=== PATIENT | male | born 2000 | race Caucasian/White ===

== ENCOUNTER 2020-03-07 11:06 | Emergency (ER) | payer OTHER ==
[~2020-03-07] VITALS: Ht 157.5 cm; Wt 80.9 kg
--- NOTE | 2020-03-07 11:58 | REPVR ---
PROCEDURE INFORMATION: Exam: XR Chest, 2 Views Exam date and time: 03/07/2020 11:29 AM Age: 19 years old Clinical indication: Other: Sore throat; Additional info: Pleuritic cp TECHNIQUE: Imaging protocol: XR of the chest Views: 2 views. COMPARISON: No relevant prior studies available. FINDINGS: Lungs: Unremarkable. No consolidation. Pleural space: Unremarkable. No pleural effusion. No pneumothorax. Heart/Mediastinum: Unremarkable. No cardiomegaly. Bones/joints: Unremarkable. IMPRESSION: No evidence for acute pulmonary disease. Electronically signed by: Lopez Og On 03/07/2020 11:58:47 AM
[2020-03-07 13:18] LABS: BASO % 0.4 % (0.0-1.0); EOS # 0.1 10^3/uL (0.0-0.5); EOS % 0.9 % (0.0-3.0); HEMATOCRIT 44.4 % (42.0-52.0); HEMOGLOBIN 15.4 g/dl (13.5-17.5); LYMPH # 2.8 10^3/uL (1.5-5.0); LYMPH % 24.8 % (24.0-44.0); MEAN CORPUSCULAR HEMOGLOBIN 32.4 pg (27.0-33.0); MEAN CORPUSCULAR HGB CONC 34.7 g/dl (32.0-36.5); MEAN CORPUSCULAR VOLUME 93.3 fl (80.0-96.0); MONO # 0.9 10^3/uL (0.0-0.8); MONO % 8.2 % (0.0-5.0); NEUTROPHILS # 7.5 10^3/uL (1.5-8.5); NEUTROPHILS % 65.3 % (36.0-66.0); PLATELET COUNT, AUTOMATED 272 10^3/uL (150-450); RED BLOOD COUNT 4.76 10^6/uL (4.30-6.10); WHITE BLOOD COUNT 11.4 10^3/uL (4.0-10.0)
[2020-03-07 14:00] LABS: BLOOD UREA NITROGEN 11 MG/DL (7-18); CALCIUM LEVEL 9.8 MG/DL (8.5-10.1); CARBON DIOXIDE LEVEL 29 MEQ/L (21-32); CHLORIDE LEVEL 104 MEQ/L (98-107); CK-MB VALUE MASS 2.3 NG/ML (<3.6); CPK CREATINE PHOSPHOKINASE 3985 U/L (39-308); CREATININE FOR GFR 0.94 MG/DL (0.70-1.30); FREE T4 1.11 NG/DL (0.78-1.33); GLUCOSE, FASTING 88 MG/DL (70-100); MB/CK RELATIVE INDEX 0.06 (< OR =4); POTASSIUM SERUM 4.3 MEQ/L (3.5-5.1); SODIUM LEVEL 136 MEQ/L (136-145); TROPONIN I < 0.02 NG/ML (< 0.10)
[2020-03-07] MEDS ORDERED: NS 1,000 ML IV ONE (14:15)
[2020-03-07 15:22] VITALS: BP 133/77
--- NOTE | 2020-03-11 10:00 | ECGEPIP ---
[facility] - ED Test Date: 2020-03-07 Pat Name: MEAGHAN SPAIN Department: Room: - Gender: Male [employer] Professional: josiah : 2000 Requested By: ASIA Schuler PA-C Order Number: [id number] Reading MD: Jeanne Campo Measurements Intervals Huffman Rate: 58 P: 45 GA: 153 QRS: 46 QRSD: 93 T: 28 QT: 366 QTc: 361 Interpretive Statements SINUS BRADYCARDIA NSTTW ABNORMALITY SEE SCANNED DOWNTIME REPORT
== END 2020-03-07 15:42 | disposition home or self-care (01) ==
LOC: M ED 11:06
DX: J02.9 Acute pharyngitis, unspecified (principal); R74.8 Abnormal levels of other serum enzymes; R00.1 Bradycardia, unspecified; Z20.828 Contact with and (suspected) exposure to other viral communicable diseases; F17.210 Nicotine dependence, cigarettes, uncomplicated

== ENCOUNTER 2022-02-27 16:51 | Emergency (ER) | payer OTHER ==
[~2022-02-27] VITALS: Ht 160 cm; Wt 67.9 kg
[2022-02-27 16:54] VITALS: BP 132/73
[2022-02-27] MEDS ORDERED: ISOT40CA5 PO (17:09)
[2022-02-27 21:55] LABS: BASO % 0.4 % (0.0-1.0); EOS # 0.1 10^3/uL (0.0-0.5); EOS % 0.7 % (0.0-3.0); HEMATOCRIT 44.5 % (42.0-52.0); HEMOGLOBIN 15.3 g/dl (13.5-17.5); LYMPH # 4.6 10^3/uL (1.5-5.0); LYMPH % 40.7 % (24.0-44.0); MEAN CORPUSCULAR HEMOGLOBIN 31.9 pg (27.0-33.0); MEAN CORPUSCULAR HGB CONC 34.4 g/dl (32.0-36.5); MEAN CORPUSCULAR VOLUME 92.9 fl (80.0-96.0); MONO # 0.8 10^3/uL (0.0-0.8); MONO % 6.9 % (2.0-8.0); NEUTROPHILS # 5.8 10^3/uL (1.5-8.5); NEUTROPHILS % 50.9 % (36.0-66.0); PLATELET COUNT, AUTOMATED 262 10^3/uL (150-450); RED BLOOD COUNT 4.79 10^6/uL (4.30-6.10); WHITE BLOOD COUNT 11.3 10^3/uL (4.0-10.0)
[2022-02-27 22:13] LABS: ERYTHROCYTE SEDIMENTATION RATE 6 mm/hr (0-15)
[2022-02-27] MEDS ORDERED: LIDOCAINE 1% MDV 20ML VIAL SC ONE (23:30)
[2022-02-27] MEDS ORDERED: ACETAMINOPHEN 325 MG TAB PO ONE (23:50)
[2022-02-27] MEDS ORDERED: BACTRIM 160MG/800MG DS TAB PO ONE (23:50)
[2022-02-27] MEDS ORDERED: BACT800T5 PO (23:52)
[2022-02-27] MEDS ORDERED: BACIOIN5 OP (23:53)
== END 2022-02-28 00:21 | disposition home or self-care (01) ==
LOC: M ED 16:51
DX: L02.11 Cutaneous abscess of neck (principal)